=== PATIENT | male | born 1980 | race Two or more races ===

== ENCOUNTER 2017-07-04 16:04 | Emergency (ER) | payer SELFPAY ==
[~2017-07-04] VITALS: Ht 170.2 cm; Wt 94.4 kg
[2017-07-04 17:05] VITALS: BP 156/87
== END 2017-07-04 17:05 | disposition home or self-care (01) ==
LOC: ED 16:04
DX: S62.396A Other fracture of fifth metacarpal bone, right hand, initial encounter for closed fracture (principal); W17.89XA Other fall from one level to another, initial encounter; Y93.89 Activity, other specified; Y92.89 Other specified places as the place of occurrence of the external cause; Y99.8 Other external cause status